=== PATIENT | female | born 2000 | race Caucasian/White ===

== ENCOUNTER → 2021-05-29 | Outpatient (CLI) | payer OTHER ==
--- NOTE | 2021-05-29 17:39 | RAD ---
INDICATION: Reason: DUB, VAGINAL PAIN / Spl. Instructions: / History: COMPARISON: None. TECHNIQUE: Grayscale and color ultrasound images uterus and adnexa. Transabdominal and transvaginal images obtained. Transvaginal images were needed to better visualize structures that were limited on transabdominal imaging. FINDINGS: Uterus: 65 x 40 x 27 mm. 3 mm endometrial stripe. Right Ovary: 26 x 13 x 11 mm. Left Ovary: 25 x 17 x 15 mm. Vascular flow identified to bilateral ovaries. Trace free fluid. 15 mm dominant follicle left ovary IMPRESSION: * Vascular flow seen to the ovaries. * Uterus unremarkable in appearance Electronically signed by: Garo Thacker MD (05/29/2021 5:37 PM) [id number]
== END ==
LOC: US 13:44
PROVIDERS: ATTEND Physician Assistant Medical
DX: N93.8 Other specified abnormal uterine and vaginal bleeding (principal)
CPT/HCPCS: 76830; 76856